=== PATIENT | male | born 1985 | race Caucasian/White ===

== ENCOUNTER 2016-12-13 07:25 | Emergency (ER) | payer MEDICAID ==
[~2016-12-13] VITALS: Ht 160 cm; Wt 90.0 kg
[~2016-12-13 07:25] MED LIST: NO MEDS TAKEN
[2016-12-13 07:29] VITALS: Ht 160 cm; Wt 90.0 kg
--- NOTE | 2016-12-13 07:58 | ERD ---
ER Documentation Chief Complaint Date/Time DATE: 12/13/16 TIME: 07:49 Chief Complaint been drinking tuesday, today feels shakey and heart racing HPI 30-year-old otherwise healthy male presents the emergency department complaining of intermittent heart palpitations, and feeling shaky 1 day. Patient states that he has been drinking alcohol frequently and has noticed the symptoms the following day. Patient denies any recent illness, fever, chills, leg swelling, nausea, vomiting, abdominal pains, chest pain, shortness of breath. Patient denies any cardiac history. Patient denies history of seizures. Patient denies any sudden amongst his immediate family from cardiac disease. ROS All systems reviewed and are negative except as per history of present illness. Medications Home Meds Reported Medications [No Meds Taken] No Conflict Check 12/04/11 Allergies Allergies: Coded Allergies: No Known Allergy (Unverified , 12/04/11) PMhx/Soc History of Surgery: No Anesthesia Reaction: No Hx Neurological Disorder: No Hx Respiratory Disorders: No Hx Cardiac Disorders: Yes (PALPITATIONS) Hx Psychiatric Problems: No Hx Alcohol Use: No Hx Substance Use: No Hx Tobacco Use: No Physical Exam Vitals Vital Signs Date Time Temp Pulse Resp B/P Pulse Ox O2 Delivery O2 Flow Rate FiO2 12/13/16 07:29 98.1 82 18 153/95 99 Physical Exam Const: Well-developed, well-nourished, no acute distress Head: Atraumatic Eyes: Normal Conjunctiva ENT: Normal External Ears, Nose and Mouth. Neck: Full range of motion..~ No meningismus. Resp: Clear to auscultation bilaterally, no wheezes, rhonchi, rales Cardio: Regular rate and rhythm, no murmurs Abd: Soft, non tender, non distended. Normal bowel sounds Skin: No petechiae or rashes Back: No midline or flank tenderness Ext: No cyanosis, or edema Neur: Awake and alert, no pronator drift, no significant tremor to outstretched hands. Finger to nose intact. Cranial nerves II through XII intact Psych: Normal Mood and Affect Procedures/MDM This is an otherwise healthy 30-year-old male who presents the emergency department for complaints of shakiness and heart palpitations episodes which occur the day after alcohol ingestion. Patient denies chest pain, shortness of breath, cardiac history, or sudden due to cardiac disease in his immediate family. Vital signs reviewed. Patient afebrile, non-tachycardic, non -hypoxic. His blood pressure was slightly elevated at 153/95. Which prompted an EKG. Patient's blood pressure was elevated (>120/80) but appears stable without evidence of hypertension emergency or urgency. The patient was counseled about the risks of hypertension and urged to pursue outpatient monitoring and therapy within a week with their primary care physician. EKG: Rate/Rhythm: Normal Sinus Rhythm QRS, ST, T-waves: No changes consistent w/ acute ischemia Impression: No evidence of ischemia or arrhythmia Patient well-appearing, nontoxic, and in no acute distress. Physical exam unremarkable for any acute tremor or neurologic deficit. Presentation consistent with palpitations and feeling shaky likely due to dehydration versus alcohol withdrawal versus anxiety. At this time low suspicion for acute coronary syndrome, DVT, PE, cardiac dysrhythmia, tachycardia , or acute ischemia. I instructed the patient to increase oral fluids. I will provide the patient with a short course of anxiolytics to alleviate his symptoms and recommended cessation from alcohol intake. Based on patient's history of present illness and physical examination the decision was made to discharge. The patient was re-evaluated after ED treatment and stabilizing measures, and symptoms have improved. There is no evidence of life threatening injuries or illnesses at this time. On re-examination, patient resting in no distress, stable vital signs, reports feeling better and safe for discharge with outpatient follow up with PMD in 1-2 days. Patient given return precautions. Departure Diagnosis: Primary Impression: Palpitation Additional Impression: GISSELLE Mast PA-C Dec 13, 2016 07:57
[2016-12-13] MEDS ORDERED: ELEC100080 PO (07:59)
[2016-12-13] MEDS ORDERED: LORA-441 PO (07:59)
[2016-12-13] MEDS ORDERED: IBUP-1542 PO (07:59)
== END 2016-12-13 08:17 | disposition home or self-care (01) ==
LOC: FTE 07:25
DX: R00.2 Palpitations (principal); R25.1 Tremor, unspecified
CPT/HCPCS: 93005; Z7502

== ENCOUNTER 2017-01-04 10:49 | Emergency (ER) | payer MEDICAID ==
[~2017-01-04] VITALS: Ht 165.1 cm; Wt 90.0 kg
[~2017-01-04 10:49] MED LIST changes: +ELEC100080 PO; +IBUP-1542 PO; +LORA-441 PO
[2017-01-04 10:53] VITALS: Ht 165.1 cm; Wt 90.0 kg
[2017-01-04] MEDS ORDERED: ONDANSETRON 4 MG INJ IV STA (11:11)
[2017-01-04] MEDS ORDERED: morphine 4 MG/ML VIAL IV STA (11:11)
--- NOTE | 2017-01-04 11:14 | ERD ---
ER Documentation Chief Complaint Date/Time DATE: 01/04/17 TIME: 11:12 Chief Complaint AP ONSET 2 HRS AGO HPI Is a 31-year-old male who presents to the emergency department today complaining of sudden onset of abdominal pain for the past couple of hours. 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 States he has nausea. States he does not take any medication for the pain. States he is not currently taking any medications. States he drinks occasionally has not had any alcohol for 3 week denies any dysuria, diarrhea, constipation fevers or chills. ROS All systems reviewed and are negative except as per history of present illness. Medications Home Meds Active Scripts Naproxen* (Naprosyn*) 500 Mg Tablet, 500 MG PO BID Y for PAIN AND/OR INFLAMMATION, #30 TAB Prov:JOSE ANTONIO MORAGN PA-C 01/04/17 Hydrocodone/Acetaminophen ([place] 5-325 Tablet) 1 Each Tablet, 1 TAB PO Q6H Y for PAIN, #12 TAB Prov:JOSE ANTONIO MORGAN PA-C 01/04/17 Lorazepam* (Ativan*) 0.5 Mg Tablet, 0.5 MG PO Q8, #10 TAB Prov:GISSELLE TOURE PA-C 12/13/16 Ibuprofen* (Motrin*) 600 Mg Tab, 600 MG PO Q6, #30 TAB Prov:GISSELLE TOURE PA-C 12/13/16 Electrolyte,Oral (Pedialyte) 1,000 Ml Solution, 100 ML PO Q6 Y for AGITATION for 7 Days, ML Prov:GISSELLE TOURE PA-C 12/13/16 Reported Medications [No Meds Taken] No Conflict Check 12/04/11 Allergies Allergies: Coded Allergies: No Known Allergy (Unverified , 12/04/11) PMhx/Soc History of Surgery: No Anesthesia Reaction: No Hx Neurological Disorder: No Hx Respiratory Disorders: No Hx Cardiac Disorders: No Hx Psychiatric Problems: No Hx Miscellaneous Medical Probl: No Hx Alcohol Use: No Hx Substance Use: No Hx Tobacco Use: No Physical Exam Vitals Vital Signs Date Time Temp Pulse Resp B/P Pulse Ox O2 Delivery O2 Flow Rate FiO2 01/04/17 10:53 98.4 81 18 150/90 99 Physical Exam Const: Obese, mild distress Head: Atraumatic Eyes: Normal Conjunctiva ENT: Normal External Ears, Nose and Mouth. Neck: Full range of motion..~ No meningismus. Resp: Clear to auscultation bilaterally Cardio: Regular rate and rhythm, no murmurs Abd: Soft, right upper quadrant and right lower quadrant tenderness non distended. Normal bowel sounds. Skin: No petechiae or rashes Neur: Awake and alert Psych: Normal Mood and Affect Result Diagram: 01/04/17 1130 01/04/17 1130 Results 24 hrs Laboratory Tests Test 01/04/17 11:30 01/04/17 13:05 White Blood Count 8.210^3/ul Red Blood Count 4.9810^6/ul Hemoglobin 16.4g/dl Hematocrit 45.5% Mean Corpuscular Volume 91.4fl Mean Corpuscular Hemoglobin 32.9pg Mean Corpuscular Hemoglobin Concent 36.0g/dl Red Cell Distribution Width 12.4% Platelet Count 78546^3/UL Mean Platelet Volume 10.1fl Neutrophils % 63.1% Lymphocytes % 26.9% Monocytes % 7.1% Eosinophils % 1.1% Basophils % 0.6% Nucleated Red Blood Cells % 0.0/100WBC Neutrophils # 5.210^3/ul Lymphocytes # 2.210^3/ul Monocytes # 0.610^3/ul Eosinophils # 0.110^3/ul Basophils # 0.110^3/ul Nucleated Red Blood Cells # 0.010^3/ul Sodium Level 143mmol/L Potassium Level 4.0mmol/L Chloride Level 102mmol/L Carbon Dioxide Level 27mmol/L Anion Gap 18 Blood Urea Nitrogen 8mg/dl Creatinine 0.84mg/dl Glucose Level 96mg/dl Calcium Level 9.0mg/dl Total Bilirubin 0.4mg/dl Direct Bilirubin 0.00mg/dl Indirect Bilirubin 0.4mg/dl Aspartate Amino Transf (AST/SGOT) 85IU/L Alanine Aminotransferase (ALT/SGPT) 133IU/L Alkaline Phosphatase 88IU/L Total Protein 8.0g/dl Albumin 4.5g/dl Globulin 3.50g/dl Albumin/Globulin Ratio 1.28 Lipase 61U/L Urine Color YELLOW Urine Clarity CLEAR Urine pH 6.0 Urine Specific [place] 1.015 Urine Ketones NEGATIVEmg/dL Urine Nitrite NEGATIVEmg/dL Urine Bilirubin NEGATIVEmg/dL Urine Urobilinogen NEGATIVEmg/dL Urine Leukocyte Esterase NEGATIVELeu/ul Urine Hemoglobin NEGATIVEmg/dL Urine Glucose NEGATIVEmg/dL Urine Total Protein NEGATIVEmg/dl Current Medications Medications (Trade) Dose Ordered Sig/[place] Route PRN Reason Start Time Stop Time Status Last Admin Dose Admin Morphine Sulfate (morphine) 4 mg ONCE STAT IV 01/04/17 11:11 01/04/17 11:13 DC 01/04/17 11:26 Ondansetron HCl (Zofran Inj) 4 mg ONCE STAT IV 01/04/17 11:11 01/04/17 11:13 DC 01/04/17 11:26 DIAGNOSTIC IMAGING REPORT Patient: DEBBIE SANCHEZ : 1985 Age: 31 Sex: M MR #: [id number] DOS: 01/04/17 1111 Ordering MD: JOSE ANTONIO MORGAN PA-C Location: [facility] Room/Bed: PROCEDURE: CT Abdomen and pelvis without contrast. CLINICAL INDICATION: Right upper and right lower abdominal pain TECHNIQUE: CT scan of the abdomen and pelvis without contrast was performed on a multidetector high-resolution CT scan. . Coronal and sagittal reformatted images were obtained from the axial source images. Standard CT scan of the abdomen pelvis without contrast protocols were performed. The total exam CTDI equals 22.85 mGy and the total exam DLP equals 1605.04 mGy- cm. One or more of the following dose reduction techniques were used: - Automated exposure control. - Adjustment of the mA and/or kV according to patient size. Use of iterative reconstruction technique. COMPARISON: None. FINDINGS: The kidneys are normal in size without hydronephrosis bilaterally. There is a nonobstructing 4 mm calcified calculus within the mid right kidney. No other calcified renal calculi bilaterally. Note in the anterior mid right renal cortex at the level of the calcified calculus is an ill-defined small area of low density measuring approximately 1.1 cm of uncertain etiology and may represent mass such as a cyst or possibly focal pyelonephritis. Recommend clinical correlation and follow-up to assess for change. No other intra renal masses bilaterally. The ureters are unremarkable. The urinary bladder is unremarkable. The prostate is unremarkable. The appendix is unremarkable. The stomach, small bowel and large bowel are unremarkable. Negative for intra-abdominal free air, free fluid, abscesses or lymphadenopathy. The liver is normal in size with diffuse inhomogeneous fatty infiltration. No focal hepatic lesions. The gallbladder is unremarkable without biliary ductal dilation. The spleen pancreas and adrenal glands are unremarkable. The aorta is unremarkable without aneurysm. There are right hilar calcified lymph nodes. Calcification along the left atrium likely a calcified lymph node. There is calcified granuloma involving the posterior inferior right lower lobe. The lung bases are otherwise clear. Minimal degenerative changes lower thoracic and lumbar spine without acute osseous findings are osteoblastic/osteolytic lesions. IMPRESSION: 1. 4 mm nonobstructing mid right renal calculus. No other calcified urinary calculi or obstructive uropathy. 2. Small ill defined approximate 1.1 cm region of low density in the mid anterior right renal cortex at the level of the calculus may represent a cyst or possibly pyelonephritis. Recommend clinical correlation and follow-up as clinically indicated. 3. No evidence of intra-abdominal free air fluid abscesses or lymphadenopathy. 4. Unremarkable appendix. No gastrointestinal disease. 5. Old granulomatous disease. 6. Hepatic fatty infiltration. RPTAT:AAJJ Physician Jaycee Date Time Electronically viewed and signed by Physician Jaycee on 01/04/2017 12:53 BM/ CC: JOSE ANTONIO MORGAN. MARION Thomas/MDM Is a 31-year-old male who presents emergency department today complaining of sudden onset abdominal pain that started a couple of hours ago while at work. Patient had significant a right upper quadrant and right lower quadrant abdominal pain on physical exam therefore did obtain laboratory workup as well as imaging. Patient indicated that he had been treated in the past for anxiety and possibly alcohol withdrawal however he has not had a drink in 3 weeks. Laboratory workup shows no elevated white blood cell count. He is not anemic. Platelets are within normal limits. Electrolytes are within normal limits. Glucose within normal limits. Liver enzymes are elevated. Bilirubin is within normal limits. Lipase within normal limits. UA is negative for infection or hematuria CT abdomen pelvis noncontrast shows a 4 mm nonobstructing mid right renal calculus. There is no other calcified urinary calculi or obstructive uropathy. There is small ill-defined approximately 1.1 cm region of low density in the mid anterior right renal cortex at the level of the calculus may represent a cyst or possibly pyelonephritis. There is no evidence of intra-abdominal free air or abscess or lymphadenopathy. Unremarkable appendix. No GI disease. Old granulamotisis disease. There is hepatic fatty infiltration. Gallbladder is unremarkable without biliary ductal dilatation. Patient right-sided abdominal pain may be due to this kidney stone. It is not obstructing at this time. He has no other indication for acute surgical abdomen. Patient was given morphine, Zofran and IV fluids here in the emergency department here in the emergency department and pain improved. Patient was given a prescription for a short course of [place] for home as well as Naprosyn and Zofran. At this time the patient is stable for discharge and outpatient management. Patient should follow up with their PCP in the next 1-2 days. They may return to the emergency department sooner for any persistent or worsening of symptoms. Patient understood and agreed with the plan. Departure Diagnosis: Primary Impression: Abdominal pain Abdominal location: generalized Qualified Code: R10.84 - Generalized abdominal pain Additional Impression: Kidney stone Condition: Fair JOSE ANTONIO MORGAN PA-C Jan 04, 2017 11:14
[2017-01-04 11:43] LABS: BASOPHIL # 0.1 10^3/ul (0.0-0.1); BASOPHILS % 0.6 % (0.0-2.0); EOSINOPHILS # 0.1 10^3/ul (0.0-0.5); EOSINOPHILS % 1.1 % (0.0-7.0); HEMATOCRIT 45.5 % (42.0-52.0); HEMOGLOBIN 16.4 g/dl (14.0-18.0); LYMPHOCYTES # 2.2 10^3/ul (0.8-2.9); LYMPHOCYTES % 26.9 % (15.0-51.0); MEAN CORPUSCULAR HEMOGLOBIN 32.9 pg (29.0-33.0); MEAN CORPUSCULAR VOLUME 91.4 fl (82.0-101.0); MEAN PLATELET VOLUME 10.1 fl (7.4-10.4); MONOCYTE # 0.6 10^3/ul (0.3-0.9); MONOCYTES % 7.1 % (0.0-11.0); NEUTROPHIL # 5.2 10^3/ul (1.6-7.5); NEUTROPHILS % 63.1 % (39.0-77.0); PLATELET COUNT 269 10^3/UL (140-415); RED BLOOD COUNT 4.98 10^6/ul (4.70-6.10); RED CELL DISTRIBUTION WIDTH 12.4 % (11.5-14.5); WHITE BLOOD COUNT 8.2 10^3/ul (4.8-10.8)
[2017-01-04 12:15] LABS: ALBUMIN 4.5 g/dl (3.3-4.9); ALBUMIN/GLOBULIN RATIO 1.28; BILIRUBIN,INDIRECT 0.4 mg/dl (0-1.1); BILIRUBIN,TOTAL 0.4 mg/dl (0.2-1.3); CREATININE 0.84 mg/dl (0.61-1.24)
--- NOTE | 2017-01-04 12:54 | RADRPT ---
PROCEDURE: CT Abdomen and pelvis without contrast. CLINICAL INDICATION: Right upper and right lower abdominal pain TECHNIQUE: CT scan of the abdomen and pelvis without contrast was performed on a multidetector hig h-resolution CT scan. . Coronal and sagittal reformatted images were obtained from the axial [facility] e images. Standard CT scan of the abdomen pelvis without contrast protocols were performed. The total exam CTDI equals 22.85 mGy and the total exam DLP equals 1605.04 mGy-cm. One or more of the following dose reduction techniques were used: - Automated exposure control. - Adjustment of the mA and/or kV according to patient size. Use of iterative reconstruction technique. COMPARISON: None. FINDINGS: The kidneys are normal in size without hydronephrosis bilaterally. There is a nonobstructing 4 mm c alcified calculus within the mid right kidney. No other calcified renal calculi bilaterally. Note in the anterior mid right renal cortex at the level of the calcified calculus is an ill-defined smal l area of low density measuring approximately 1.1 cm of uncertain etiology and may represent mass retana ch as a cyst or possibly focal pyelonephritis. Recommend clinical correlation and follow-up to asse ss for change. No other intra renal masses bilaterally. The ureters are unremarkable. The urinary bladder is unremarkable. The prostate is unremarkable. The appendix is unremarkable. The stomach, small bowel and large bowel are unremarkable. Negative for intra-abdominal free air, free fluid, abscesses or lymphadenopathy. The liver is normal in size with diffuse inhomogeneous fatty infiltration. No focal hepatic lesions . The gallbladder is unremarkable without biliary ductal dilation. The spleen pancreas and adrenal glands are unremarkable. The aorta is unremarkable without aneurysm . There are right hilar calcified lymph nodes. Calcification along the left atrium likely a calcified lymph node. There is calcified granuloma involving the posterior inferior right lower lobe. The l cedric bases are otherwise clear. Minimal degenerative changes lower thoracic and lumbar spine without acute osseous findings are ost eoblastic/osteolytic lesions. IMPRESSION: 1. 4 mm nonobstructing mid right renal calculus. No other calcified urinary calculi or obstructive uropathy. 2. Small ill defined approximate 1.1 cm region of low density in the mid anterior right renal jose x at the level of the calculus may represent a cyst or possibly pyelonephritis. Recommend clinical correlation and follow-up as clinically indicated. 3. No evidence of intra-abdominal free air fluid abscesses or lymphadenopathy. 4. Unremarkable appendix. No gastrointestinal disease. 5. Old granulomatous disease. 6. Hepatic fatty infiltration. RPTAT:AAJJ Carmen Delgado Physician Date Time Electronically viewed and signed by Carmen Delgado Physician on 01/04/2017 12:53 BM/
[2017-01-04 13:16] LABS: ADD UMIC NO; UR ASCORBIC ACID NEGATIVE (NEGATIVE); UR BILIRUBIN (Dip) NEGATIVE (NEGATIVE); UR BLOOD (Dip) NEGATIVE (NEGATIVE); UR CLARITY CLEAR (CLEAR); UR COLOR YELLOW (YELLOW); UR GLUCOSE (Dip) NEGATIVE (NEGATIVE); UR KETONES (Dip) NEGATIVE (NEGATIVE); UR LEUKOCYTE ESTERASE (Dip) NEGATIVE Leu/ul (NEGATIVE); UR NITRITE (Dip) NEGATIVE (NEGATIVE); UR SPECIFIC GRAVITY (Dip) 1.015 (1.003-1.030); UR TOTAL PROTEIN (Dip) NEGATIVE (NEGATIVE); UR UROBILINOGEN (Dip) NEGATIVE (NEGATIVE)
[2017-01-04] MEDS ORDERED: HYDR-906 PO (13:52)
[2017-01-04] MEDS ORDERED: NAPR-260 PO (13:53)
[2017-01-04] MEDS ORDERED: ONDA4TAB8 PO (14:15)
[2017-01-04 14:38] VITALS: BP 139/86; PULSE 68; RESP 16; TEMP 97.9
== END 2017-01-04 14:36 | disposition home or self-care (01) ==
LOC: FTE 10:49
DX: R10.84 Generalized abdominal pain (principal); N20.0 Calculus of kidney
CPT/HCPCS: 36415; 74176; 80053; 81003; 83690; 85025; 96374; 96375; J2270; J2405; Z7502

== ENCOUNTER 2017-02-20 16:20 | Emergency (ER) | payer MEDICAID ==
[~2017-02-20] VITALS: Ht 170.2 cm; Wt 107.5 kg
[~2017-02-20 16:20] MED LIST changes: +HYDR-906 PO; +NAPR-260 PO; +ONDA4TAB8 PO
[2017-02-20 16:24] VITALS: Ht 170.2 cm; Wt 107.5 kg
[2017-02-20] MEDS ORDERED: SOD CHLORIDE 0.9% 1,000 ML IV STA (16:52)
[2017-02-20] MEDS ORDERED: DIPHENHYDRAMINE 50 MG INJ IV STA (16:52)
[2017-02-20] MEDS ORDERED: METOCLOPRAMIDE 10 MG INJ IV STA (16:52)
[2017-02-20] MEDS ORDERED: KETOROLAC 30 MG INJ IV STA (16:52)
--- NOTE | 2017-02-20 17:56 | ERD ---
ER Documentation Chief Complaint Date/Time DATE: 02/20/17 TIME: 17:49 Chief Complaint donovan dizziness & nausea, medication not working (fioricet & antivert) HPI This 31-year-old male patient presents right-sided headache, dizziness, nausea, vomiting, and ear ringing. Patient reports pain in his neck and at times right arm numbness and tingling. Patient has been seen for this complaint by his primary care physician 2 days ago was given Fioricet and meclizine patient has been taking medication as prescribed reports no change in symptoms. Patient denies that this is the worse headache he has ever felt, and is not sure the exact date headache started. Reports history of migraines. Denies any change in behavior or loss of sensation. Is clear, oriented, and able to provide history difficulties. ROS All systems reviewed and are negative except as per history of present illness. Medications Home Meds Active Scripts Ibuprofen* (Motrin*) 800 Mg Tab, 800 MG PO Q6 for HEADACHE, #30 TAB Prov:BLANCA,ANNETTE 02/20/17 Sumatriptan Succinate* (Imitrex*) 50 Mg Tablet, 50 MG PO BID Y for MIGRAINE HEADACHE, #10 TAB May repeat after 2 hours if needed; MAX 200 mg/24 hours Prov:BLANCA,ANNETTE 02/20/17 Ondansetron Hcl* (Zofran*) 4 Mg Tablet, 4 MG PO Q6H for NAUSEA AND/OR VOMITING, #30 TAB Prov:JOSE ANTONIO MORGAN PA-C 01/04/17 Naproxen* (Naprosyn*) 500 Mg Tablet, 500 MG PO BID Y for PAIN AND/OR INFLAMMATION, #30 TAB Prov:PROJOSE ANTONIO HENRY PA-C 01/04/17 Hydrocodone/Acetaminophen (Barnum 5-325 Tablet) 1 Each Tablet, 1 TAB PO Q6H Y for PAIN, #12 TAB Prov:PROJOSE ANTONIO HENRY PA-C 01/04/17 Lorazepam* (Ativan*) 0.5 Mg Tablet, 0.5 MG PO Q8, #10 TAB Prov:GISSELLE TOURE PA-C 12/13/16 Ibuprofen* (Motrin*) 600 Mg Tab, 600 MG PO Q6, #30 TAB Prov:GISSELLE TOURE PA-C 12/13/16 Electrolyte,Oral (Pedialyte) 1,000 Ml Solution, 100 ML PO Q6 Y for AGITATION for 7 Days, ML Prov:GISSELLE TOUREAndrae SCHULTZ 12/13/16 Reported Medications [No Meds Taken] No Conflict Check 12/04/11 Allergies Allergies: Coded Allergies: No Known Allergy (Unverified , 12/04/11) PMhx/Soc History of Surgery: No Anesthesia Reaction: No Hx Neurological Disorder: No Hx Respiratory Disorders: No Hx Cardiac Disorders: No Hx Psychiatric Problems: No Hx Miscellaneous Medical Probl: No Hx Alcohol Use: No Hx Substance Use: No Hx Tobacco Use: No Smoking Status: Never smoker Physical Exam Vitals Vital Signs Date Time Temp Pulse Resp B/P Pulse Ox O2 Delivery O2 Flow Rate FiO2 02/20/17 21:02 69 16 128/65 98 Room Air 02/20/17 16:24 98.3 101 20 120/78 99 Vitals stable, triage notes reviewed Physical Exam Const: Well-nourished well-hydrated, well-appearing 31-year-old male patient no acute distress Head: Atraumatic Eyes: Normal Conjunctiva PERRLA, EOMI, left-sided nystagmus, Epoley maneuver administered with no improvement of symptoms ENT: Bilateral tympanic membranes dull, no erythema or air-fluid level noticed, nasal mucosa moist right naris, left nares dry with excoriated turbinates and septal wall no bleeding points. Cervix is pink uvula midline without shift rises and falls with pronation Neck: Full range of motion..~ No meningismus. Resp: Respirations even and unlabored clear to auscultation bilaterally no rales wheezes or rhonchi Cardio: S1-S2, no S3-S4 regular rate and rhythm, no murmurs Abd: Soft, non tender, non distended. The gastric pain Skin: No petechiae or rashes Back: Ext: Neur: Neuro: M/S: Alert and oriented Face: EOMI, face and pharynx with normal sensation and function Motor: Normal strength throughout Sensation: Normal sensation throughout Speech: Normal Cerebel: Normal coordination Normal gait Normal finger to nose DTR: 2+ and symmetric upper/lower extremities Psych: Normal Mood and Affect Results 24 hrs Current Medications Medications (Trade) Dose Ordered Sig/Almaz Route PRN Reason Start Time Stop Time Status Last Admin Dose Admin Sodium Chloride (NS) 1,000 ml @ 1,000 mls/hr Q1H STAT IV 02/20/17 16:52 02/20/17 17:51 DC 02/20/17 17:23 Metoclopramide HCl (Reglan) 10 mg ONCE STAT IV 02/20/17 16:52 02/20/17 16:59 DC 02/20/17 17:24 Ketorolac Tromethamine (Toradol) 30 mg ONCE STAT IV 02/20/17 16:52 02/20/17 16:59 DC 02/20/17 17:24 Diphenhydramine HCl (Benadryl) 25 mg ONCE STAT IV 02/20/17 16:52 02/20/17 16:59 DC 02/20/17 17:23 Procedures/MDM PROCEDURE: XR Cervical Spine. CLINICAL INDICATION: Headache and dizziness. TECHNIQUE: Three views of the cervical spine were performed. Frontal, lateral , lateral swimmers, and AP open-mouth odontoid. The images were reviewed on a PACS workstation. COMPARISON: None. FINDINGS: C7 is not well visualized on the lateral views. The visualized vertebrae demonstrate normal stature and alignment. There is no visualized fracture. There is no visualized lytic or blastic lesion. The disk height is normal. The prevertebral soft tissues are normal. IMPRESSION: 1. C7 not well visualized on the lateral views. If there is clinical concern regarding any cervical spine abnormality, correlation with CT scan of the cervical spine is advised. 2. Otherwise unremarkable images of the cervical spine. Electronically viewed and signed by .Cain Mobley MD, on 02/20/2017 18:13 This 31-year-old male patient presents to emergency department for headache, tinnitus, vertigo, and neck pain. Patient eyes any known injury, reports migraine history, has been seen by primary care physician 3 days ago started on Fioricet and meclizine taking as prescribed a little relief of symptoms. Emergency room course includes IV hydration with 1 L normal saline, 25 mg of IV Benadryl, 15 mg of IV Toradol, 10 mg of IV Reglan, and a c-spine x-ray. Radiology findings C7 not well visualized on the lateral views. If there is clinical concern regarding any cervical spine abnormality, correlation with CT scan of the cervical spine is advised.otherwise unremarkable images of the cervical spine. Suspicion for a cervical fracture, no documentation of disc herniation, compression fractures or straightening suggestive of spasm. Patient rest after interventions reported improvement in headache. Plan to discharge patient home with Imitrex 50 g, 800 mg ibuprofen, continue meclizine if needed. Follow-up with primary care physician for referral to neurology. Patient is stable with no new complaints during ER course, clinically there is no current evidence to suggest meningitis, giant cell arteritis, malignant hypertension, CVA, intracranial bleed or any other emergent condition appearing to require further evaluation or hospitalization. I feel the patient is stable for discharge at this time. I have discussed results, examination findings, the treatment plan with the patient and family present prior to discharge. Indications for emergent reevaluation, side effects of medication were also discussed. All questions were answered. Patient verbalizes understanding and agrees with plan of care. Departure Diagnosis: Primary Impression: Headache Headache type: unspecified Headache chronicity pattern: episodic headache Intractability: not intractable Qualified Code: R51 - Nonintractable episodic headache, unspecified headache type Additional Impression: Vertigo as late effect of stroke Condition: Good Patient Instructions: Benign Positional Vertigo, Self-Care for Headaches Referrals: [facility] Additional Instructions: Thank you for for coming to [facility] for your care today. Please ask your nurse or provider if you have questions about your care today and do not leave until all your questions have been answered. Please use any medications given as directed and follow-up with your doctor (or the doctor you were referred to) in the next 2-3 days. If you do not have a primary care doctor you may follow up at the [facility] (listed below). You may also use motrin and tylenol as needed for fever and/or pain unless instructed otherwise by your provider or nurse. Indications for more urgent follow-up have been discussed, but you may return to the Emergency Department at ANY time for any worrisome or worsening symptoms. If you have abdominal pain, please know that no test or exam you received is perfect and you should follow up within 8 hours for continued pain. If you had any imaging studies today, such as an X-Ray or CT Scan, these studies will be reviewed later by a radiologist. You will be called if there are important findings that were not identified today, so make sure the contact information you provided at registration is correct. If you received any narcotic pain control medicine today, such as Vicodin, Morphine or Dilaudid, your coordination and judgment may be affected for a number of hours. Please do not drive or operate heavy machinery, and you may want someone to assist you at home. If you were given a prescription for narcotic medication, be aware that it is very addictive- use sparingly and only if necessary. ANNETTE RIOS Feb 20, 2017 17:56
--- NOTE | 2017-02-20 18:13 | RADRPT ---
PROCEDURE: XR Cervical Spine. CLINICAL INDICATION: Headache and dizziness. TECHNIQUE: Three views of the cervical spine were performed. Frontal, lateral, lateral swimmers, a nd AP open-mouth odontoid. The images were reviewed on a PACS workstation. COMPARISON: None. FINDINGS: C7 is not well visualized on the lateral views. The visualized vertebrae demonstrate normal stature and alignment. There is no visualized fracture. There is no visualized lytic or blastic lesion. The disk height is normal. The prevertebral soft tissues are normal. IMPRESSION: 1. C7 not well visualized on the lateral views. If there is clinical concern regarding any cervical spine abnormality, correlation with CT scan of the cervical spine is advised. 2. Otherwise unremarkable images of the cervical spine. RPTAT: QQ .Cain Mobley MD, Date Time Electronically viewed and signed by .Cain Mobley MD, on 02/20/2017 18:13 .R/
[2017-02-20] MEDS ORDERED: SUMA50TA11 PO (20:34)
[2017-02-20] MEDS ORDERED: IBUP800T25 PO (20:35)
[2017-02-20 21:02] VITALS: BP 128/65; PULSE 69; RESP 16
== END 2017-02-20 21:03 | disposition home or self-care (01) ==
LOC: FTE 16:20
DX: R51 Headache (principal); R42 Dizziness and giddiness; I69.30 Unspecified sequelae of cerebral infarction
CPT/HCPCS: 36415; 72040; 96374; 96375; J1200; J1885; J2765; J7030; Z7502

== ENCOUNTER 2017-07-06 07:48 | Emergency (ER) | END 2017-07-06 11:14 | disposition home or self-care (01) ==

== ENCOUNTER 2018-02-14 18:59 | Emergency (ER) | END 2018-02-14 21:00 | disposition short-term general hospital (02) ==

== ENCOUNTER 2018-12-26 07:01 | Emergency (ER) | payer MEDICAID, OTHER ==
[~2018-12-26] VITALS: Ht 157.5 cm; Wt 90.0 kg
[2018-12-26 07:04] VITALS: BP 142/88; PULSE 88; RESP 18; Ht 157.5 cm; Wt 90.0 kg
[2018-12-26] MEDS ORDERED: ACET325T45 PO (07:42)
[2018-12-26] MEDS ORDERED: AMOX500C2 PO (07:42)
--- NOTE | 2018-12-26 08:03 | ERD ---
ER Documentation Chief Complaint Chief Complaint right era pain HPI 33-year-old male presented to ED for right ear pain x2 days. 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 Patient states he has some ringing in his ear and it is painful to the touch. Patient denies any drainage from the ear. Patient cannot recall any trauma. Patient denies any past medical history and he is presented to ED with vitals within normal limits. Patient rates the pain 4 out of 10 and denies headache blurry vision or jaw pain. ROS All systems reviewed and are negative except as per history of present illness. Medications Home Meds Active Scripts Acetaminophen* (Acetaminophen*) 325 Mg Tablet, 325 MG PO Q4H PRN for PAIN AND OR ELEVATED TEMP, #30 TAB Prov:EMELINA LYLE PA-C 12/26/18 Amoxicillin* (Amoxicillin*) 500 Mg Cap, 500 MG PO TID for 7 Days, CAP Prov:EMELINA LYLE PA-C 12/26/18 Allergies Allergies: Coded Allergies: No Known Allergy (Unverified , 02/14/18) PMhx/Soc Medical and Surgical Hx: pt denies Medical Hx, pt denies Surgical Hx History of Surgery: No Anesthesia Reaction: No Hx Neurological Disorder: No Hx Respiratory Disorders: No Hx Cardiac Disorders: No Hx Psychiatric Problems: No Hx Miscellaneous Medical Probl: No Hx Alcohol Use: Yes (Beer 12 per day) Hx Substance Use: No Hx Tobacco Use: No Smoking Status: Never smoker FmHx Family History: No diabetes, No coronary disease, No other Physical Exam Vitals Vital Signs Date Temp Pulse Resp B/P (MAP) Pulse Ox O2 O2 Flow FiO2 Time Delivery Rate 12/26/18 98.1 88 18 142/88 99 07:04 (106) Physical Exam GENERAL: Moderate Distress. HEENT: Buldging erythamatous ruptured right TM. NECK: C-spine is soft and supple. There is no meningismus. There is no cervical lymphadenopathy. CHEST: Clear to auscultation bilaterally. There are no rales, wheezes or rhonchi. HEART: Regular rate and rhythm. No murmurs, clicks, rubs or gallops. Procedures/MDM ED course: The patient was stable throughout the ED course. The patient and/or family informed of laboratory and diagnostic imaging results throughout the ED course. Medical decision makin-year-old male presented to ED for right ear pain x2 days. 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 Patient states the pain started yesterday. Patient denies traumatic injury Physical exam revealed right tympanic membrane rupture no cerumen impaction no pain provoked with pulling on the tragus. non erythematous ear canal Ruptured right tympanic membrane no pain was provoked when I tapped on the mastoid process . At this time I low suspicion for , mastoiditis, biotic barotrauma, TMJ dysfunction, meningitis Prescription for home: Amoxicillin Acetaminophen I have discussed with the patient proper use and common side effects to expert with the medication . I advised the patient/family to speak with the pharmacist dispensing the medication to be advised of any potential drug interactions with other medication or supplements they may be taking. Discharge: At this time, patient is stable for discharge and outpatient management. I have instructed the patient to follow-up with his\her primary care physician in 1 to 2 days. I have discussed with the patient the possibility of needing to see a specialist for further work-up and imaging studies if symptoms persist. I have instructed the patient to promptly return to the ER for any new or worsening symptoms including increased pain, fever, nausea, vomiting, weakness or LOC. The patient and\or family expressed understanding of and agreement with this plan. All questions were answered. Home care instructions were provided. Disclaimer: Inadvertent spelling and grammatical errors are likely due to EHR\dictation sof tware use and do not reflect on the overall quality of patient care. Also, please note that the electronic time recorded on the note does not necessarily reflect the actual time of the patient encounter. Departure Diagnosis: Primary Impression: Right ear pain Additional Impression: Otitis media, purulent, acute, with spontaneous rupture of TM Laterality: right Recurrence: not specified as recurrent Qualified Codes: H66.011 - Acute suppurative otitis media with spontaneous rupture of ear drum, right ear Condition: Stable Patient Instructions: Otitis Media, Abx Tx (Adult) Referrals: [facility] YOU HAVE RECEIVED A MEDICAL SCREENING EXAM AND THE RESULTS INDICATE THAT YOU DO NOT HAVE A CONDITION THAT REQUIRES URGENT TREATMENT IN THE EMERGENCY DEPARTMENT. FURTHER EVALUATION AND TREATMENT OF YOUR CONDITION CAN WAIT UNTIL YOU ARE SEEN IN YOUR DOCTORS OFFICE WITHIN THE NEXT 1-2 DAYS. IT IS YOUR RESPONSIBILITY TO MAKE AN APPOINTMENT FOR FOLOW-UP CARE. IF YOU HAVE A PRIMARY DOCTOR --you should call your primary doctor and schedule an appointment IF YOU DO NOT HAVE A PRIMARY DOCTOR YOU CAN CALL OUR PHYSICIAN REFERRAL HOTLINE AT IF YOU CAN NOT AFFORD TO SEE A PHYSICIAN YOU CAN CHOSE FROM THE FOLLOWING [facility] [address] [facility] [address] [facility] [address] [facility] [address] [facility] [address] [facility]. [facility] [address] [facility]. [facility] YOU HAVE RECEIVED A MEDICAL SCREENING EXAM AND THE RESULTS INDICATE THAT YOU DO NOT HAVE A CONDITION THAT REQUIRES URGENT TREATMENT IN THE EMERGENCY DEPARTMENT. FURTHER EVALUATION AND TREATMENT OF YOUR CONDITION CAN WAIT UNTIL YOU ARE SEEN IN YOUR DOCTORS OFFICE WITHIN THE NEXT 1-2 DAYS. IT IS YOUR RESPONSIBILITY TO MAKE AN APPOINTMENT FOR FOLOW-UP CARE. IF YOU HAVE A PRIMARY DOCTOR --you should call your primary doctor and schedule and appointment IF YOU DO NOT HAVE A PRIMARY DOCTOR YOU CAN CALL OUR PHYSICIAN REFERRAL HOTLINE AT . IF YOU CAN NOT AFFORD TO SEE A PHYSICIAN YOU CAN CHOSE FROM THE FOLLOWING [facility]: [facility] [address] [place] [address] [facility] [address] [place] [address] [facility] [address] [place] [address] Additional Instructions: Call your primary care doctor TOMORROW for an appointment during the next 1-2 days.See the doctor sooner or return here if your condition worsens before your appointment time. EMELINA LYLE PA-C Dec 26, 2018 08:03
== END 2018-12-26 07:48 | disposition home or self-care (01) ==
LOC: FTE 07:01
DX: H66.011 Acute suppurative otitis media with spontaneous rupture of ear drum, right ear (principal)
CPT/HCPCS: 99283

== ENCOUNTER 2019-03-25 12:26 | Emergency (ER) | payer OTHER ==
[~2019-03-25] VITALS: Ht 172.7 cm; Wt 121.3 kg
[~2019-03-25 12:26] MED LIST changes: +ACET325T45 PO; +AMOX500C2 PO; -ELEC100080 PO; +HYDR-4011 PO; -HYDR-906 PO; -IBUP-1542 PO; -LORA-441 PO; +MELO7.5T38 PO; -NAPR-260 PO; -NO MEDS TAKEN; -ONDA4TAB8 PO; +TAMS-14 PO
[2019-03-25 12:31] VITALS: Ht 172.7 cm; Wt 121.3 kg
[2019-03-25] MEDS ORDERED: KETOROLAC 30 MG INJ IV STA (15:17)
[2019-03-25] MEDS ORDERED: morphine 2 MG INJ IV STA (15:17)
[2019-03-25] MEDS ORDERED: SOD CHLORIDE 0.9% 1,000 ML IV ONE (15:30)
[2019-03-25] MEDS ORDERED: FAMOTIDINE 20 MG INJ IV ONE (15:30)
[2019-03-25 18:48] VITALS: BP 162/100; PULSE 76; RESP 18
== END 2019-03-25 18:49 | disposition home or self-care (01) ==
LOC: FTE 12:26
DX: N50.89 Other specified disorders of the male genital organs (principal); N20.0 Calculus of kidney
CPT/HCPCS: 74176; 76775; 76870; 80053; 81001; 85025; 96361; 96374; 96375; J1885; J2270; J7030; Z7502; Z7610